=== PATIENT | male | born 1995 | race Caucasian/White ===

== ENCOUNTER 2022-12-28 10:20 | Emergency (ER) | payer OTHER, SELFPAY ==
[2022-12-28 10:29] VITALS: BP 153/98; PULSE 71; RESP 18; TEMP 36.9; O2SAT 100; BMI 24.8
--- NOTE | 2022-12-28 10:47 | CRLHL7_ITS ---
For Patients: As a result of the Century Cures Act, medical imaging exams and procedure reports are released immediately into your electronic medical record. You may view this report before your referring provider. If you have questions, please contact your health care provider. Indication: head injury, concussion symptoms Technique: CT of the head without contrast. Coronal and sagittal reformats. Bone and soft tissue windows. Comparison: MRI 01/09/2014 Findings: No acute intracranial hemorrhage or extraaxial collection. No evidence of acute cortical infarction. No mass effect or midline shift. Normal cerebral volume. The ventricles are normal in size, shape and contour. There is normal yanes and white matter differentiation. The orbital contents are normal. No calvarial fractures. No lytic or sclerotic osseous lesions within the calvarium or skull base. Scalp and other imaged soft tissue structures are normal. The mastoid air cells are clear. Paranasal sinuses are well aerated. Trace mucosal thickening in the left frontal sinus. Bilateral Wilder air cells in the maxillary sinuses. Impression: No acute intracranial abnormality. Please note that all CT scans at this facility use dose modulation, iterative reconstruction, and/or weight-based dosing when appropriate to reduce radiation dose to as low as reasonably achievable. Dictated by Chandler Kerr MD @ 12/28/2022 11:44:27 AM (Electronically Signed)
[2022-12-28] MEDS: ONDANSETRON ODT 4 MG TAB PO (10:55)
[2022-12-28] MEDS: ACETAMINOPHEN 500 MG TABLET 1000 MG PO (10:55)
--- NOTE | 2022-12-28 11:32 | ED.HEATRA ---
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 Some mild neck discomfort noted in the upper occiptal area. He notes that he is very photophobic and has a hard time opening his eyes. He has never before had head injuries despite being at [employer]. Denies any numbness tingling weakness in the hands of the feet, he is nauseous but has not vomited. Had not take any Tylenol ibuprofen. No previous history of head injuries, use of blood anticoagulants, blood thinners, is on no chronic medications, no known allergies. Incident occurred approximately 3 hours ago. Initially called the urgent care directed him to the emergency room. MD Complaint: head injury Related Data Previous Rx's Medication Instructions Recorded ondansetron 4 mg disintegrating 4 mg PO Q8H PRN nausea and 12/28/22 tablet vomiting 4 days #14 tabs Allergies Allergy/AdvReac Type Severity Reaction Status Date / Time No Known Drug Allergies Allergy Verified 12/28/22 10:32 Review of Systems Status of ROS: Reports: 10 or more systems reviewed and unremarkable except as noted in History and below [facility] Social History Smoking Status: Unknown if ever smoked Exam Narrative: Exam Narrative: I find him in room stabilization 2, his dark. And he is in no apparent distress. Speaking to me normally, GCS is 15/15, oriented x3 his pupils are equal round reactive to light, fundi appear normal, from what I can see, no nystagmus, cranial nerves 3-12 are normal TMs are normal, his neck is supple full range of motion of flexion extension lateral flexion and rotation are all noted. K[employer] strengths are equal bilaterally right-hand dominant. Finger-nose testing is normal, his back is nontender palpation chest is clear heart sounds are normal, abdomen is soft neurologically moves all extremities independently and well. Both upper lower extremities are assessed and symmetrically strong. Both distal and proximal Const: Vital Signs, click to edit/add: Vital Signs - 24 hr 12/28/22 10:29 Temperature 98.5 F Pulse Rate [Right Pulse Oximeter] 71 Respiratory Rate 18 Blood Pressure [Ri ght Upper Arm] 153/98 H Pulse Oximetry 100 Oxygen Delivery Me thod Room Air Common normals: no apparent distress General appearance: cooperative Course Vital Signs Vital signs: Initial Vital Signs Temperature 98.5 F 12/28/22 10:29 Temperature Source Temporal Artery Scan 12/28/22 10:29 Pulse Rate 71 12/28/22 10:29 Respiratory Rate 18 12/28/22 10:29 Blood Pressure 153/98 H 12/28/22 10:29 Blood Pressure Mean 116 H 12/28/22 10:29 Blood Pressure Position Sitting 12/28/22 10:29 Pulse Oximetry 100 12/28/22 10:29 Oxygen Delivery Method Room Air 12/28/22 10:29 Vital Signs Temperature 98.5 F 12/28/22 10:29 Pulse Rate 71 12/28/22 10:29 Respiratory Rate 18 12/28/22 10:29 Blood Pressure 153/98 H 12/28/22 10:29 Pulse Oximetry 100 12/28/22 10:29 Oxygen Delivery Method Room Air 12/28/22 10:29 Temperature 98.5 F 12/28/22 10:29 Pulse Rate 71 12/28/22 10:29 Respiratory Rate 18 12/28/22 10:29 Blood Pressure 153/98 H 12/28/22 10:29 Pulse Oximetry 100 12/28/22 10:29 Oxygen Delivery Method Room Air 12/28/22 10:29 MDM - Head Injury MDM Narrative Medical decision making narrative: Life-threatening differential diagnosis is considered include: Subarachnoid hemorrhage, subdural hemorrhage, epidural hemorrhage. Other differential diagnosis considered include concussion, closed head injury, or neck fracture. Differential Diagnosis Differential diagnosis: Likely concussion without loss of consciousness, epidural hematoma, closed head injury, subarachnoid hematoma, postconcussion syndrome and subdural hematoma Imaging Data CT scan - head: Attestation: I have reviewed the pertinent imaging results. My impression: Negative head CT Radiologist's impression: Patient: SHARRI STAFFORD Facility:[facility] Patient ID:?[id number] Site Patient ID:?[id number]. Site :?[id number] Study:?CT Head WO-12/28/2022 11:17:31 AM Ordering Physician:Samy Grubbs Final Report: Indication: head injury, concussion symptoms Technique: CT of the head without contrast. Coronal and sagittal reformats. Bone and soft tissue windows. Comparison: MRI 01/09/2014 Findings: No acute intracranial hemorrhage or extraaxial collection. No evidence of acute cortical infarction. No mass effect or midline shift. Normal cerebral volume. The ventricles are normal in size, shape and contour. There is normal yanes and white matter differentiation. The orbital contents are normal. No calvarial fractures. No lytic or sclerotic osseous lesions within the calvarium or skull base. Scalp and other imaged soft tissue structures are normal. The mastoid air cells are clear. Paranasal sinuses are well aerated. Trace mucosal thickening in the left frontal sinus. Bilateral Wilder air cells in the maxillary sinuses. Impression: No acute intracranial abnormality. Please note that all CT scans at this facility use dose modulation, iterative reconstruction, and/or weight-based dosing when appropriate to reduce radiation dose to as low as reasonably achievable. Dictated by Chandler Kerr MD @ 12/28/2022 11:44:27 AM (Electronic Signature) Discharge Plan Discharge Clinical Impression: Concussion without loss of consciousness Patient Disposition: Home, Self-Care Condition: Stable Instructions: Concussion (ED), Cognitive Disorders after Traumatic Brain Injury (ED), Post Concussion Syndrome (ED) Additional Instructions: Home rest no work for the next 2 days, recommend dark room, you may sleep as much as needed Tylenol for the 1st 48 hours, Zofran for nausea, follow-up with primary care if ongoing signs and symptoms, no exercising or jujitsu for the next week. Activity Level: Light activity Prescriptions: New ondansetron 4 mg tablet,disintegrating 4 mg PO Q8H PRN (Reason: nausea and vomiting) 4 Days Qty: 14 0RF Follow Up/Referrals: Chandler Seals MD [Staff Physician] - Provider,Not a Local [Primary Care Provider] - Stand Alone Forms: [employer] [facility] Info Instructions
== END 2022-12-28 12:06 | disposition home or self-care (01) ==
PROVIDERS: Emergency Provider Family Medicine
DX: S06.0X0A Concussion without loss of consciousness, initial encounter (principal); W50.0XXA Accidental hit or strike by another person, initial encounter; Y99.0 Civilian activity done for income or pay
CPT/HCPCS: 70450; 99284; A9270